=== PATIENT | male | born 1995 ===

== ENCOUNTER 2016-12-07 03:21 | Emergency (ER) | payer MEDICAID ==
[2016-12-07 03:21] VITALS: BMI 35.5
[2016-12-07 03:29] VITALS: RESP 16
--- NOTE | 2016-12-07 03:44 | ED PDOC ---
HPI: Psych/Substance Abuse Time Seen by Provider: 12/07/16 03:26 Chief Complaint (Nursing): Alcohol Ingestion Chief Complaint (Provider): Alcohol Ingestion ED Caveat: Intoxicated History Per: Other (Friend) Onset/Duration Of Symptoms: Hrs Current Symptoms Are (Timing): Still Present Additional Complaint(s): 21 y/o male presents to the emergency department via EMS for public intoxication prior to arrival. As per history from friend, patient was in his car and defecated on himself. Denies any further complaints. Past Medical History Reviewed: Historical Data, Nursing Documentation, Vital Signs Vital Signs: Last Vital Signs Temp 98.4 F 12/07/16 03:26 Pulse 81 12/07/16 03:26 Resp 16 12/07/16 03:26 BP 135/71 12/07/16 03:26 Pulse Ox 100 12/07/16 03:26 - Medical History PMH: Asthma - Surgical History Surgical History: No Surg Hx - Family History Family History: States: Unknown Family Hx - Social History Current smoker - smoking cessation education provided: No Alcohol: Occasional Drugs: Denies - Immunization History Hx Tetanus Toxoid Vaccination: No Hx Influenza Vaccination: No Hx Pneumococcal Vaccination: No - Home Medications Home Medications: Ambulatory Orders Medication Instructions Recorded Albuterol 0.083% [Albuterol 3 ml IH Q4 PRN 08/07/16 Sulfate 3 Ml] Albuterol/Ipratropium [Duoneb 3 3 ml IH Q6 #20 neb 08/07/16 MG/3 Ml-0.5 MG/3 Ml 3 Ml] Albuterol/Ipratropium [Duoneb 3 3 ml IH Q6 PRN #20 neb 09/25/16 MG/3 Ml-0.5 MG/3 Ml 3 Ml] predniSONE [Prednisone] 40 mg PO DAILY #4 tab 09/25/16 - Allergies Allergies/Adverse Reactions: Allergies Allergy/AdvReac Type Severity Reaction Status Date / Time No Known Allergies Allergy Unverified 09/25/16 09:22 Review of Systems Review Of Systems: ROS cannot be obtained secondary to pt's inabilty to answer questions. Physical Exam - Reviewed Nursing Documentation Reviewed: Yes Vital Signs Reviewed: Yes - Physical Exam Appears: Positive for: Non-toxic, No Acute Distress Head Exam: Positive for: ATRAUMATIC, NORMOCEPHALIC Skin: Positive for: Normal Color, Warm, Dry Neck: Positive for: Normal, Supple Cardiovascular/Chest: Positive for: Regular Rate, Rhythm. Negative for: Murmur Respiratory: Positive for: Normal Breath Sounds. Negative for: Accessory Muscle Use, Respiratory Distress Gastrointestinal/Abdominal: Positive for: Normal Exam, Soft. Negative for: Tenderness Extremity: Positive for: Normal ROM. Negative for: Pedal Edema Neurologic/Psych: Positive for: Oriented, Other (Slurred Speech. ) - Laboratory Results Result Diagrams: 12/07/16 04:00 12/07/16 04:00 - ECG O2 Sat by Pulse Oximetry: 100 (RA) Pulse Ox Interpretation: Normal Medical Decision Making Medical Decision Making: Time: 03:26 Initial impression: Alcohol Intoxication Initial plan: --Alcohol Serum Stat --COMP Metabolic Panel --Drug Screen, Urine Stat --CBC w differential --AccuCheck --Revaluation --Alcohol, Quantitative: 195 (H) Time: 06:28 Patient observed o have steady gait, clear speech and is AAO x3. Upon provider reevaluation patient is clinically sober, medically stable, and requires no further treatment in the ED at this time. Patient will be discharged home. Clinical Impression: Alcohol abuse with intoxication Scribe Attestation: Documented by Jenna Patel, acting as a scribe for Christiano Antonio MD. Provider Scribe Attestation: All medical record entries made by the Scribe were at my direction and personally dictated by me. I have reviewed the chart and agree that the record accurately reflects my personal performance of the history, physical exam, medical decision making, and the department course for this patient. I have also personally directed, reviewed, and agree with the discharge instructions and disposition. Disposition - Clinical Impression Clinical Impression: Alcohol abuse with intoxication - Patient ED Disposition Is Patient to be Admitted: No Counseled Patient/Family Regarding: Studies Performed, Diagnosis - Disposition Disposition: Routine/Home Disposition Time: 06:28 Condition: STABLE Instructions: Alcohol Intoxication (ED)
[2016-12-07 04:08] LABS: BASO # 0.1 K/uL (0.0-0.2); BASO % 0.8 % (0.0-2.0); EOS # 0.5 K/uL (0.0-0.7); EOS % 3.4 % (0.0-4.0); HEMATOCRIT 48.8 % (35.0-51.0); LYMPH # 2.1 K/uL (1.0-4.3); MEAN CORPUSCULAR HEMOGLOBIN 31.6 pg (27.0-31.0); MEAN CORPUSCULAR HGB CONC 34.7 g/dL (33.0-37.0); MEAN PLATELET VOLUME 7.5 fl (7.2-11.7); MONO # 0.7 K/uL (0.0-0.8); MONO % 4.8 % (0.0-10.0); NEUT # 11.5 K/uL (1.8-7.0); NRBC % 0.1 % (0.0-0.0); RED CELL DISTRIBUTION WIDTH 13.5 % (11.5-14.5); WHITE BLOOD COUNT 14.9 K/uL (4.8-10.8)
[2016-12-07 04:17] LABS: ALB/GLOB RATIO 1.8 (1.0-2.1); ALCOHOL SERUM 195 mg/dl (0-10); ALKALINE PHOSPHATASE 85 U/L (38-126); ALT/SGPT 93 U/L (21-72); AST/SGOT 46 U/L (17-59); BILIRUBIN,TOTAL 0.3 mg/dl (0.2-1.3); BLOOD UREA NITROGEN 12 mg/dl (9-20); CALCIUM 9.2 mg/dL (8.4-10.2); CARBON DIOXIDE 19 mmol/L (22-30); CHLORIDE 105 mmol/L (98-107); GFR AFRICAN-AMERICAN > 60; GLUCOSE,RANDOM 131 mg/dL (75-110); POTASSIUM 3.7 MMOL/L (3.6-5.0); SODIUM 142 mmol/l (132-148); TOTAL PROTEIN 7.8 G/DL (6.3-8.2)
[2016-12-07 06:28] VITALS: BP 112/75; PULSE 86; TEMP 97
[2016-12-07 06:30] VITALS: O2SAT 100
== END 2016-12-07 06:46 | disposition home or self-care (01) ==
LOC: H.ER 03:21
DX: F10.129 Alcohol abuse with intoxication, unspecified (principal); J45.909 Unspecified asthma, uncomplicated